=== PATIENT | male | born 1995 | race Caucasian/White ===

== ENCOUNTER 2018-12-08 19:15 | Emergency (ER) | payer OTHER ==
[2018-12-08 19:25] VITALS: RESP 16; O2SAT 98
--- NOTE | 2018-12-08 20:16 | ED PDOC ---
HPI: Chest Pain Time Seen by Provider: 12/08/18 19:43 Chief Complaint (Nursing): Chest Pain Chief Complaint (Provider): Chest Pain History Per: Patient History/Exam Limitations: no limitations Onset/Duration Of Symptoms: Days (x5) Current Symptoms Are (Timing): Still Present Quality: Tightness Additional Complaint(s): 23 y/o male with no significant PMHx presents to the ED for evaluation of chest pain, onset 5 days ago. Patient reports of developing pain after colliding with another player while playing soccer. Patient states he collided on his side not on his chest. Patient now describes pain as tightness on the sternum and has been mild since onset. Patient states while at work today, trying to hit an object with a hammer, he felt a more intense pain lasting at about 20 minutes. Patient reports pain slowly improved but a pressure-like feeling is still present. Patient states pain is worse with deep breath and coughing. Otherwise, patient denies URI symptoms, fever, phlegm, swelling and taking medications for pain relief. PMD: No provider Past Medical History Reviewed: Historical Data, Nursing Documentation, Vital Signs Vital Signs: Last Vital Signs Temp 98.0 F 12/08/18 19:24 Pulse 90 12/08/18 19:24 Resp 16 12/08/18 19:24 BP 160/83 H 12/08/18 19:24 Pulse Ox 98 12/08/18 19:24 - Medical History PMH: No Chronic Diseases - Surgical History Surgical History: No Surg Hx - Family History Family History: States: Other Other Family History: Brother had leukemia. - Social History Current smoker - smoking cessation education provided: No - Immunization History Hx Tetanus Toxoid Vaccination: No Hx Influenza Vaccination: No Hx Pneumococcal Vaccination: No - Home Medications Home Medications: Ambulatory Orders Medication Instructions Recorded Acetaminophen [Tylenol] 325 mg PO Q6 PRN #20 tab 05/04/14 Ibuprofen [Motrin] 400 mg PO Q6 PRN #20 tab 05/04/14 Clotrimazole 1% Cream [Lotrimin 1%] 1 appl TP BID #1 tube 12/08/18 RX: Ibuprofen [Motrin Tab] 600 mg PO Q8 PRN #30 tab 12/08/18 - Allergies Allergies/Adverse Reactions: Allergies Allergy/AdvReac Type Severity Reaction Status Date / Time No Known Allergies Allergy Unverified 12/08/18 19:30 Review of Systems ROS Statement: Except As Marked, All Systems Reviewed And Found Negative (as per HPI) Constitutional: Negative for: Fever Cardiovascular: Positive for: Chest Pain (midsternal chest tightness. ) Physical Exam - Reviewed Nursing Documentation Reviewed: Yes Vital Signs Reviewed: Yes - Physical Exam Appears: Positive for: Well, No Acute Distress Head Exam: Positive for: ATRAUMATIC, NORMOCEPHALIC Skin: Positive for: Warm, Dry Neck: Positive for: Painless ROM, Supple Cardiovascular/Chest: Positive for: Regular Rate, Rhythm. Negative for: Chest Non Tender (Midsternum tenderness with no crepidous and step off), Edema, Murmur Respiratory: Positive for: Normal Breath Sounds (clear to auscultation bilaterally). Negative for: Rales, Rhonchi, Wheezing Gastrointestinal/Abdominal: Positive for: Soft. Negative for: Tenderness Back: Positive for: Normal Inspection. Negative for: Decreased ROM Extremity: Positive for: Normal ROM. Negative for: Deformity Neurologic/Psych: Positive for: Alert. Negative for: Motor/Sensory Deficits - Laboratory Results Result Diagrams: 12/08/18 20:42 12/08/18 20:42 - ECG ECG Rhythm: Positive for: Normal QRS, Normal ST Segment, Sinus Rhythm Rate: 93 O2 Sat by Pulse Oximetry: 98 (RA) Pulse Ox Interpretation: Normal Medical Decision Making Medical Decision Making: Time: 1951 Impression: Chest pain Differentials include but not limited to chest wall strain, costochondirits, reactive airway disease and pneumonia. Plan: -- EKG -- CMP -- Magnesium -- Phosphorus -- Thyroid Stimulating Hormone -- Troponin I -- CBC with Differentials -- D Dimer -- PTT -- Prothrombin Time -- CXR Two Views -- Toradol 15 mg IVP -- IV Insertion 2315 CT Chest W/O Contrast FINDINGS: LUNGS: The lungs are clear. No pulmonary contusion. PLEURAL SPACES: No pneumothorax. HEART: No cardiomegaly. No significant pericardial effusion. LYMPH NODES: There is calcified right hilar lymph nodes. BONES: No displaced rib or sternum fractures identified. UPPER ABDOMEN: The upper abdominal solid organs are unremarkable. MISCELLANEOUS: No hemothorax. IMPRESSION: 1. The lungs are clear. No pneumothorax or hemothorax. No pulmonary contusion. 2. No displaced rib or sternum fractures identified. 3. Additional and incidental findings as described. Workup most consistent with chest wall strain or costochondritis. No acutely emergent issues. Pt now reports for the last 2 weeks with skin rash on chest and arms. On eval, pt has faint raised circular lesions on forearms and on chest, variable size. Raised edges c/w fungal infection (ringworm.) DW pt findings and plan of care. Stable for discharge. Scribe Attestation: Documented by Leo Jennings, acting as a scribe for Marian Lee MD. Provider Scribe Attestation: All medical record entries made by the Scribe were at my direction and personally dictated by me. I have reviewed the chart and agree that the record accurately reflects my personal performance of the history, physical exam, medical decision making, and the department course for this patient. I have also personally directed, reviewed, and agree with the discharge instructions and disposition. Disposition - Clinical Impression Clinical Impression: Chest pain - Disposition Referrals: [facility] [Outside] ([facility]) Disposition: Routine/Home Disposition Time: 23:00 Condition: IMPROVED Prescriptions: Clotrimazole 1% Cream [Lotrimin 1%] 1 appl TP BID #1 tube RX: Ibuprofen [Motrin Tab] 600 mg PO Q8 PRN #30 tab PRN Reason: Pain, Moderate (4-7) Instructions: Chest Pain That Is Not Caused by the Heart (DC), Costochondritis (DC), Fungal Skin Rash (DC) Forms: [facility] ED School/Work Excuse Print Language: BOTSWANA[place]
[2018-12-08 20:57] LABS: PROTHROMBIN TIME 11.2 Seconds (9.8-13.1)
[2018-12-08 20:58] LABS: ALB/GLOB RATIO 1.4 (1.0-2.1); ALBUMIN 4.7 g/dL (3.5-5.0); BASO # 0.1 K/uL (0.0-0.2); BASO % 0.7 % (0.0-2.0); BLOOD UREA NITROGEN 13 mg/dl (9-20); CALCIUM 9.8 mg/dL (8.4-10.2); EOS # 0.2 K/uL (0.0-0.7); EOS % 1.7 % (0.0-4.0); GFR NON-AFRICAN AMERICAN > 60; LYMPH # 1.6 K/uL (1.0-4.3); MEAN CORPUSCULAR HEMOGLOBIN 27.7 pg (27.0-31.0); MEAN CORPUSCULAR HGB CONC 32.9 g/dL (33.0-37.0); MEAN PLATELET VOLUME 10.7 fl (7.2-11.7); MONO # 0.8 K/uL (0.0-0.8); MONO % 8.5 % (0.0-10.0); NEUT # 6.3 K/uL (1.8-7.0); NEUT % 71.1 % (50.0-75.0); NRBC % 0.1 % (0.0-0.0); RBC 5.42 Mil/uL (4.40-5.90); RED CELL DISTRIBUTION WIDTH 15.1 % (11.5-14.5); WHITE BLOOD COUNT 8.9 K/uL (4.8-10.8)
[2018-12-08 21:00] LABS: PARTIAL THROMBOPLASTIN TIME 28.9 Seconds (25.6-37.1)
[2018-12-08 21:17] LABS: ALT/SGPT 58 U/L (21-72); AST/SGOT 64 U/L (17-59)
[2018-12-08 21:53] LABS: D DIMER < 200 ng/mlDDU (0-230)
[2018-12-09 00:04] VITALS: BP 129/72; TEMP 98.5
--- NOTE | 2018-12-09 09:44 | RAD ---
Date of service: 12/08/2018 HISTORY: chest pain COMPARISON: No prior. TECHNIQUE: Chest PA and lateral FINDINGS: LUNGS: No active pulmonary disease. PLEURA: No significant pleural effusion identified. No pneumothorax apparent. CARDIOVASCULAR: No aortic atherosclerotic calcification present. Normal cardiac size. No pulmonary vascular congestion. OSSEOUS STRUCTURES: No significant abnormalities. VISUALIZED UPPER ABDOMEN: Normal. OTHER FINDINGS: None. IMPRESSION: No acute cardiopulmonary disease appreciated.
--- NOTE | 2018-12-09 12:15 | CARD ---
APPROVED REPORT Date of service: 12/08/2018 EKG Measurement Heart [id number] <Conclusion> Normal sinus rhythm Normal ECG
--- NOTE | 2018-12-09 12:31 | CT ---
Date of service: 12/08/2018 PROCEDURE: CT Chest without contrast HISTORY: traumatic mediastinal pain COMPARISON: None available. TECHNIQUE: Contiguous axial images were obtained through the chest without intravenous contrast enhancement. Sagittal and coronal reconstructions were performed. Radiation dose: Total exam DLP = 608.04 mGy-cm. This CT exam was performed using one or more of the following dose reduction techniques: Automated exposure control, adjustment of the mA and/or kV according to patient size, and/or use of iterative reconstruction technique. FINDINGS: LUNGS: Clear lungs. Visualized airway clear MEDIASTINUM: Unremarkable thoracic aorta. No aneurysm. Normal sized heart. Main pulmonary artery unremarkable. No vascular congestion. No lymphadenopathy. No aortic atherosclerotic calcification. PLEURA: No pleural fluid. No pneumothorax. BONES: No fracture. No destructive lesion. UPPER ABDOMEN: Grossly unremarkable. OTHER FINDINGS: None. IMPRESSION: Unremarkable non-contrast enhanced CT of the chest. Concordant results (preliminary interpretation) provided by [facility]. Procedure Completed: 22:22. Preliminary Report: Dictated and Authenticated: 23:15. Final Interpretation: 12:27. December 09, 2018
[2018-12-12 15:48] VITALS: PULSE 93
== END 2018-12-09 00:04 | disposition home or self-care (01) ==
LOC: H.ER 19:15
DX: R07.9 Chest pain, unspecified (principal); W51.XXXA Accidental striking against or bumped into by another person, initial encounter; Y93.66 Activity, soccer
CPT/HCPCS: 71046; 71250; 80053; 83735; 84100; 84443; 84484; 85025; 85378; 85610; 85730; 93005; 96374; 99284; J1885